=== PATIENT | female | born 1960 | race Caucasian/White ===

== ENCOUNTER → 2018-04-03 12:50 | Outpatient (CLI) | payer OTHER, SELFPAY ==
--- NOTE | 2018-04-03 | DI.MRI.S_ITS ---
PROCEDURE: MR CERVICAL SPINE WO CON INDICATIONS: Radiculopathy, cervical region TECHNIQUE: Noncontrast sagittal T1 spin echo and T2 fast spin echo, sagittal STIR, foraminal oblique sagittal T2 fast spin echo, and axial gradient echo or T2 fast spin echo through the cervical spine. COMPARISON: None. FINDINGS: Image quality: Degraded by motion artifact in particular on the left oblique sagittal pulse sequence Alignment and Curvature: There is normal bony alignment. Bone Marrow: Lower cervical endplate degeneration and spurring Spinal Cord: Visualized spinal cord has normal size and signal. No cerebellar tonsillar herniation. Paraspinous Soft Tissues: No paravertebral masses. Prevertebral soft tissues are normal in thickness. C2-C3: Normal appearance. C3-C4: Bilateral uncovertebral arthropathy and posterior intervening disc osteophyte complex, and facet arthropathy which is asymmetric, left greater than right. No central canal narrowing. No right foraminal stenosis. Moderate to severe left foraminal narrowing on the axial views on the sagittal pulse sequence evaluation is degraded by motion artifact. C4-C5: Bilateral uncovertebral arthropathy and posterior intervening disc osteophyte complex, and bilateral facet disease. No central canal stenosis. No right foraminal narrowing. Minimal left foraminal stenosis although evaluation by axial pulse sequence only. C5-C6: Bilateral uncovertebral arthropathy and posterior intervening disc osteophyte complex, and bilateral facet arthropathy. Mild central canal narrowing. Minimal bilateral foraminal narrowing however left side is evaluated by axial pulse sequence only due to motion artifact. C6-C7: Bilateral uncovertebral arthropathy and posterior intervening disc osteophyte complex, and bilateral facet arthropathy. Mild canal stenosis with effacement of the anterior thecal sac however no definite mass effect on the cord. Mild bilateral foraminal narrowing C7-T1: No definite canal narrowing. No definite foraminal stenosis. IMPRESSION: Motion degraded examination which limits evaluation of the left neural foramen as discussed above. Mild canal narrowing at C5-C6 and C6-C7. This appears grossly unchanged since the prior study dated 07/28/15 Moderate to severe left C3-C4 foraminal stenosis. Comparison is limited due to motion artifact described above, although based on axial pulse sequence appearance this may be unchanged. Mild bilateral C6-C7 foraminal stenosis. No interval change. Dictated by: Dinesh Thomas M.D. on 04/03/2018 at 14:09 Approved by: Dinesh Thomas M.D. on 04/03/2018 at 14:22
== END ==
PROVIDERS: PCP Ophthalmology; Visit Provider Physical Medicine & Rehabilitation
DX: M54.12 Radiculopathy, cervical region (principal); M48.02 Spinal stenosis, cervical region
CPT/HCPCS: 72141

== ENCOUNTER 2018-06-11 09:53 | Outpatient (CLI) | payer OTHER, SELFPAY ==
[2018-06-11] VITALS (9 sets, daily range): BP systolic 95–150; BP diastolic 64–85; PULSE 64–91; RESP 16–18; TEMP 36.9; O2SAT 95–100
--- NOTE | 2018-06-11 10:03 | DI.RAD.S_ITS ---
PROCEDURE: PAIN C/T INTERLAMINAR INJECT INDICATIONS: RADICULOPATHY FINDINGS: Fluoroscopic spot filming was performed to verify placement of spinal needles at the C6-C7 level(s), as labeled on the films. Appropriate location(s) of the needle tip(s) was confirmed by injection of iodinated contrast. IMPRESSION: Fluoroscopy for pain management. Dictated by: Dakotah Espinosa M.D. on 06/11/2018 at 13:08 Approved by: Dakotah Espinosa M.D. on 06/11/2018 at 13:09
[2018-06-11] MEDS: MIDAZOLAM 5 MG/5 ML VIAL IV (11:22)
[2018-06-11] MEDS: LIDOCAINE 1% 20 ML INJ 5 ML INJ (11:24)
[2018-06-11] MEDS: IOPAMIDOL 15 ML VIAL 3 ML INJ (11:25)
[2018-06-11] MEDS: DEXAMETHASONE 10 MG/ML VIAL 20 MG INJ (11:25)
--- NOTE | 2018-06-11 11:30 | PC.NURSE ---
ASSISTING PT TO OFF TABLE AND TRANSPORTING TO POST PROC AREA IN STABLE CONDITION
--- NOTE | 2018-06-11 11:34 | PM.PROC.1 ---
Procedures Date/Time Date of procedure: 06/11/18 Time of procedure: 11:34 General Procedure description: PREOP DIAGNOSIS 1. CERVICAL STENOSIS, 2. CERVICAL HNP WITH UPPER EXTREMITY RADICULAR FEATURES, POST OP DIAGNOSIS 1. CERVICAL STENOSIS, 2. CERVICAL HNP WITH UPPER EXTREMITY RADICULAR FEATURES, PROCEDURES 1. FLUORSCOPICALLY GUIDED CONTRAST CONTROLLED INTERLAMINAR EPIDURAL STEROID INJECTION - C6/7 TL SANJ[facility] PHYSICIAN: Darrian Lopez, DO INDICATIONS Opal is referred for treatment of Cervical HNP with Upper Extremity Paresthesias. FINDINGS Cervical Stenosis due to disc deterioration and nerve root irritation and nerve root irritation DESCRIPTION OF PROCEDURE Fluoroscopically guided, contrast-controlled C6/7 translaminar epidural steroid injection with conscious sedation. Following denial of allergy and review of potential side effects and complications, including, but not necessarily limited to, infection, allergic reaction, local tissue breakdown, temporary as well as permanent nerve injury, stroke, paralysis, and possible , the patient indicated that patient understood and agreed to proceed. An informed consent document was signed by the patient, witnessed by a nurse, and placed in the patient's chart. Additionally, other treatment options including modalities, medications, and physical therapy were reviewed with the patient. After review of previous anaesthesic history and IV conscious sedation the patient was deemed safe to proceed with todays procedure with IV conscious sedation as ASA class II designation. Safety time-out was performed to confirm patient ID, procedure to be performed and site of procedure. IV sedation was accomplished with a combination of 3mg of Versed administered by the RN after DO order, titrated to patient comfort during the course of the procedure while the patient remained responsive to all verbal commands. In the prone position, following sterile prep and drape of the cervical region, the C6/7 translaminar space was identified fluoroscopically. The skin was anesthetized via a 25-gauge 1.5-inch needle with 1% lidocaine solution. At this point, a 25-gauge, 2.5-inch short bevel spinal needle was atraumatically introduced and advanced under fluoroscopic guidance into epidural space at the C6/7 translaminar space. Depth was confirmed on lateral view. Radiological data, including multiple fluoroscopic views of the cervical spine, reveal a spinal needle at the C6/7 translaminar space. Lateral views then show placement of the needle in the epidural space. Subsequent views show contrast material flowing superiorly and inferiorly in the epidural space. DSA fluoroscopy with live contrast injection, once again, confirmed no vascular or intrathecal uptake. At this point, using loss of resistance technique with saline and air, the epidural space was entered. Following negative aspiration, injection of approximately 1.5 cc of Isovue-200 with live fluoroscopy in the AP view confirmed epidural flow in the epidural space without vascular or intrathecal uptake observed. Subsequently, a test dose of 1 cc of 1% lidocaine solution was injected and patient was observed for two minutes without signs or symptoms of complications, including abdominal pain, shortness of breath, bilateral upper or lower extremity weakness, nausea and vomiting, prior to steroid injection. At this point, 2cc or 20 mg of dexamethasone was then injected without incident. The patient tolerated the procedure well without signs or symptoms of complications prior to being transferred to the recovery area for further monitoring, The patient was then transferred to the recovery area where they were observed for an appropriate period of time after the injection. The patient reported a VAS score of 6 prior to the procedure and a post-procedure VAS of 0. Total Fluoroscopy Time: 37.0 seconds Total Conscious Time: 24min POST OP INSTRUCTIONS The patient was provided a Pain Log to continue to record their response to the target-specific procedure prior to follow-up visit with the referring provider. Additionally, specific post-injection care instructions and a contact number to our office were provided if concerns arise regarding possible complications associated with the procedure are suspected. Darrian Lopez DO Complications: none
--- NOTE | 2018-06-11 12:00 | PC.NURSE ---
pt returned from procedure room via wheelchair awake and alert. Able to transfer self from w/c to chair with standby assist. Resumed monitoring from Debbie CURIEL.
--- NOTE | 2018-06-12 12:20 | PC.NURSE ---
FOLLOW UP CALL MADE, LEFT MSG WITH CLINIC PHONE NUMBER IN CASE OF QUESTIONS/CONCERNS.
== END 2018-06-11 12:10 ==
LOC: RAD 10:00
PROVIDERS: Visit Provider Physical Medicine & Rehabilitation
DX: M48.02 Spinal stenosis, cervical region (principal); M50.123 Cervical disc disorder at C6-C7 level with radiculopathy; R20.2 Paresthesia of skin
CPT/HCPCS: 62321; 99152; J1100; J2250